=== PATIENT | female | born 1965 | race Caucasian/White ===

== ENCOUNTER → 2016-12-23 | Outpatient (CLI) | payer BC | END | disposition home or self-care (01) | LOC: RAD.S 11:30 | DX: R07.0 Pain in throat (principal); E04.1 Nontoxic single thyroid nodule ==

== ENCOUNTER → 2017-03-30 | Outpatient (CLI) | payer BC | END | disposition home or self-care (01) | LOC: RAD.S 10:20 | DX: E04.2 Nontoxic multinodular goiter (principal) ==